=== PATIENT | male | born 1995 | race Caucasian/White ===

== ENCOUNTER 2017-03-26 20:53 | Emergency (ER) | payer OTHER ==
[~2017-03-26] VITALS: Ht 190.5 cm; Wt 100.0 kg
[2017-03-26 20:54] VITALS: BP 145/72; PULSE 93; RESP 16; TEMP 99.5; O2SAT 99
[2017-03-26 22:11] LABS: AUTOMATED NEUTROPHIL # 7.2 TH/MM3 (1.8-7.7); BASOPHIL % 0.3 % (0.0-2.0); EOSINOPHIL # 0.2 TH/MM3 (0-0.4); EOSINOPHIL % 1.6 % (0.0-4.0); HEMATOCRIT 41.6 % (39.0-51.0); HEMO FLAGS DIFF FINAL; LYMPH % 19.8 % (9.0-44.0); LYMPHOCYTE # 2.1 TH/MM3 (1.0-4.8); MEAN CELL VOLUME 85.9 FL (80.0-100.0); MONO % 10.7 % (0.0-8.0); NEUT % 67.6 % (16.0-70.0); PLATELET COUNT 175 TH/MM3 (150-450); RED BLOOD COUNT 4.85 MIL/MM3 (4.50-5.90); RED CELL DISTRIBUTION WIDTH 12.9 % (11.6-17.2); WHITE BLOOD COUNT 10.7 TH/MM3 (4.0-11.0)
[2017-03-26 22:15] LABS: BLOOD, URINE TRACE (NEG); COMMENT (UR) CULT NOT INDICATED; CULTURE IF INDICATED CULT NOT INDICATED; GLUCOSE,URINE NEG (NEG); KETONE, URINE NEG (NEG); MUCUS URINE FEW /lpf (OCC); NITRITE,URINE NEG (NEG); PH, URINE 6.5 (5.0-8.5); SQUAMOUS EPITHELIAL CELL URINE <1 /hpf (0-5); URINE COLOR YELLOW (YELLW/STRAW)
[2017-03-26] MEDS ORDERED: SODIUM CHLOR 0.9% 1000 ML INJ 1,000 ML IV ONE (22:15)
[2017-03-26] MEDS ORDERED: ONDANSETRON HCL 4 MG/2 ML VIAL IV PUSH ONE (22:15)
--- NOTE | 2017-03-26 22:17 | PD ---
HPI Chief Complaint: Abdominal Pain Time Seen by Provider: 22:14 Travel History International Travel<30 days: No Contact w/Intl Traveler<30days: No Traveled to known affect area: No History of Present Illness HPI 22-year-old male patient presents to the ER today with several days' history of nausea, abdominal pains, and diarrhea. He states that his pain was initially in the lower abdomen and today moved to the right lower quadrant. He states the pain is currently a 5 out of 10. He denies any fevers or vomiting. He does not know any sick contacts. Modifying Factors: None Associated Signs & Symptoms: Nausea, abdominal pain, diarrhea Risk Factors: None PFSH Past Medical History Medical History: Denies Significant Hx Diminished Hearing: No Immunizations Current: Yes Social History Alcohol Use: Yes (SOMETIMES ) Tobacco Use: No Substance Use: No Allergies-Medications (Allergen,Severity, Reaction): Coded Allergies: amoxicillin (Verified Allergy, Unknown, 03/26/17) Reported Meds & Prescriptions Reported Meds & Active Scripts Active No Active Prescriptions or Reported Medications Review of Systems Except as stated in HPI: all other systems reviewed are Neg Physical Exam Narrative GENERAL: Well-developed young male patient currently in mild distress. Awake and oriented 3. SKIN: Focused skin assessment warm/dry. HEAD: Atraumatic. Normocephalic. EYES: Pupils equal and round. No scleral icterus. No injection or drainage. ENT: No nasal bleeding or discharge. Mucous membranes pink and moist. NECK: Trachea midline. No JVD. CARDIOVASCULAR: Regular rate and rhythm. No murmur appreciated. RESPIRATORY: No accessory muscle use. Clear to auscultation. Breath sounds equal bilaterally. GASTROINTESTINAL: Abdomen soft, mild right lower quadrant tenderness without guarding or rebound, nondistended. Hepatic and splenic margins not palpable. MUSCULOSKELETAL: No obvious deformities. No clubbing. No cyanosis. No edema. NEUROLOGICAL: Awake and alert. No obvious cranial nerve deficits. Motor grossly within normal limits. Normal speech. PSYCHIATRIC: Appropriate mood and affect; insight and judgment normal. Data Data Last Documented VS Vital Signs Date Time Temp Pulse Resp B/P (MAP) Pulse Ox O2 Delivery O2 Flow Rate FiO2 03/26/17 21:03 18 03/26/17 20:54 99.5 93 145/72 (96) 99 Room Air Orders Orders Complete Blood Count With Diff (03/26/17 21:57) Comprehensive Metabolic Panel (03/26/17 21:57) Urinalysis - C+S If Indicated (03/26/17 21:57) Iv Access Insert/Monitor (03/26/17 21:57) Oxygen Administration (03/26/17 21:57) Oximetry (03/26/17 21:57) Lipase (03/26/17 21:57) Ct Abd/Pel W Iv Contrast(Rout) (03/26/17 22:11) Sodium Chlor 0.9% 1000 Ml Inj (Ns 1000 M (03/26/17 22:15) Ondansetron Inj (Zofran Inj) (03/26/17 22:15) Iohexol 350 Inj (Omnipaque 350 Inj) (03/26/17 22:59) Labs Laboratory Tests Test 03/26/17 21:55 White Blood Count 10.7 TH/MM3 Red Blood Count 4.85 MIL/MM3 Hemoglobin 14.6 GM/DL Hematocrit 41.6 % Mean Corpuscular Volume 85.9 FL Mean Corpuscular Hemoglobin 30.0 PG Mean Corpuscular Hemoglobin Concent 35.0 % Red Cell Distribution Width 12.9 % Platelet Count 175 TH/MM3 Mean Platelet Volume 9.0 FL Neutrophils (%) (Auto) 67.6 % Lymphocytes (%) (Auto) 19.8 % Monocytes (%) (Auto) 10.7 % Eosinophils (%) (Auto) 1.6 % Basophils (%) (Auto) 0.3 % Neutrophils # (Auto) 7.2 TH/MM3 Lymphocytes # (Auto) 2.1 TH/MM3 Monocytes # (Auto) 1.1 TH/MM3 Eosinophils # (Auto) 0.2 TH/MM3 Basophils # (Auto) 0.0 TH/MM3 CBC Comment DIFF FINAL Differential Comment Urine Color YELLOW Urine Turbidity CLEAR Urine pH 6.5 Urine Specific [place] 1.020 Urine Protein 30 mg/dL Urine Glucose (UA) NEG mg/dL Urine Ketones NEG mg/dL Urine Occult Blood TRACE Urine Nitrite NEG Urine Bilirubin NEG Urine Urobilinogen 8.0 MG/DL Urine Leukocyte Esterase NEG Urine RBC 4 /hpf Urine WBC 1 /hpf Urine Squamous Epithelial Cells <1 /hpf Urine Mucus FEW /lpf Microscopic Urinalysis Comment CULT NOT INDICATED Blood Urea Nitrogen 14 MG/DL Creatinine 1.11 MG/DL Random Glucose 97 MG/DL Total Protein 7.4 GM/DL Albumin 3.6 GM/DL Calcium Level 8.9 MG/DL Alkaline Phosphatase 50 U/L Aspartate Amino Transf (AST/SGOT) 12 U/L Alanine Aminotransferase (ALT/SGPT) 15 U/L Total Bilirubin 0.6 MG/DL Sodium Level 139 MEQ/L Potassium Level 4.0 MEQ/L Chloride Level 104 MEQ/L Carbon Dioxide Level 28.3 MEQ/L Anion Gap 7 MEQ/L Estimat Glomerular Filtration Rate 84 ML/MIN Lipase 115 U/L MDM Medical Decision Making Medical Screen Exam Complete: Yes Emergency Medical Condition: Yes Medical Record Reviewed: Yes Interpretation(s) Laboratory Tests Test 03/26/17 21:55 Monocytes (%) (Auto) 10.7 % (0.0-8.0) Monocytes # (Auto) 1.1 TH/MM3 (0-0.9) Urine Protein 30 mg/dL (NEG-TRACE) Urine Occult Blood TRACE (NEG) Urine Urobilinogen 8.0 MG/DL (LESS THAN Urine RBC 4 /hpf (0-3) Urine Mucus FEW /lpf (OCC) Aspartate Amino Transf (AST/SGOT) 12 U/L (15-37) Estimat Glomerular Filtration Rate 84 ML/MIN (>89) Last 24 hours Impressions Abdomen/Pelvis CT 03/26/171 Signed Impressions: Service Date/Time: Sunday, March 26, 2017 22:58 - CONCLUSION: 1. The above findings are diagnostic of a right-sided colitis. There may be also mild inflammation of the terminal ileum. Etiology is nonspecific. There is trace free fluid in the pelvis. 2. Mild splenomegaly. Frank German MD Differential Diagnosis Nausea, diarrhea, right lower quadrant abdominal pains: Gastroenteritis versus metabolic issues versus dehydration versus appendicitis versus diverticulitis Narrative Course CAT scan did not show signs of appendicitis but does show some right sided colitis. Along with symptoms, I suspect he has some underlying colitis causing symptoms and my plan would be to give him symptomatic relief for nausea, and diarrhea. My plan would be to release him with follow-up to primary care physician. Return for worsening in symptoms as necessary. The plan has been discussed with him and he states understanding. Diagnosis Primary Impression: Colitis Med/Other Pt SpecificInfo: Prescription(s) given Scripts Ondansetron Odt (Zofran Odt) 4 Mg Tab 4 MG SL Q6HR Y for Nausea/Vomiting, #7 TAB 0 Refills Prov: Tabby Modi MD 03/26/17 Loperamide (Imodium A-D) 2 Mg Capsule 2 MG PO DIRECTED Y for DIARRHEA, #20 CAP 0 Refills One capsule after each loose stool. Not to exceed 8 tablets per day. Prov: Tabby Modi MD 03/26/17 Disposition: 01 DISCHARGE HOME Condition: Stable Tabby Modi MD Mar 26, 2017 22:17
[2017-03-26 22:29] LABS: ANION GAP 7 MEQ/L (5-15); BICARBONATE 28.3 MEQ/L (21.0-32.0); BLOOD UREA NITROGEN 14 MG/DL (7-18); CHLORIDE 104 MEQ/L (98-107); GLOMERULAR FILTRATION RATE 84 ML/MIN (>89); SODIUM (NA) 139 MEQ/L (136-145)
[2017-03-26 22:30] LABS: AST (GOT) 12 U/L (15-37)
[2017-03-26 22:33] LABS: ALKALINE PHOSPHATASE 50 U/L (45-117); ALT (GPT) 15 U/L (12-78); TOTAL BILIRUBIN ADULT 0.6 MG/DL (0.2-1.0)
[2017-03-26] MEDS ORDERED: IOHEXOL 350 MG/ML 10 ML VIAL (for RAD DIAG) IVCONTRAST ONE (22:59)
--- NOTE | 2017-03-26 23:19 | RADRPT ---
EXAM DATE/TIME: 03/26/2017 22:58 [facility] COMPARISON: No previous studies available for comparison. INDICATIONS : Generalized abdominal pain, more so on right side with fever, nausea, diarrhea and vomiting. IV CONTRAST: 95 cc Omnipaque 350 (iohexol) IV ORAL CONTRAST: No oral contrast ingested. RADIATION DOSE: 12.92 CTDIvol (mGy) MEDICAL HISTORY : None SURGICAL HISTORY : None. ENCOUNTER: Initial ACUITY: 3 days PAIN SCALE: 8/10 LOCATION: Right abdomen TECHNIQUE: Volumetric scanning of the abdomen and pelvis was performed. Using automated exposure control and ad justment of the mA and/or kV according to patient size, radiation dose was kept as low as reasonably achievable to obtain optimal diagnostic quality images. DICOM format image data is available electro nically for review and comparison. FINDINGS: LOWER LUNGS: The visualized lower lungs are clear. LIVER: Homogeneous density without lesion. There is no dilation of the biliary tree. No calcified gallston es. SPLEEN: Spleen is enlarged measuring 16.6 cm. PANCREAS: Within normal limits. KIDNEYS: Normal in size and shape. There is no mass, stone or hydronephrosis. ADRENAL GLANDS: Within normal limits. VASCULAR: There is no aortic aneurysm. BOWEL/MESENTERY: The stomach and proximal small bowel are normal. There may be mild bowel wall thickening of the termi nal ileum. The entire cecum, ascending colon, and proximal transverse colon demonstrates circumferent ial wall thickening with pericolonic inflammation. There are enlarged ileocolic lymph nodes. The appe ndix is fluid-filled measuring up to 6 mm in diameter but no definite surrounding inflammation is pre sent to indicate acute diverticulitis. There is trace free fluid in the pelvis. No free air is presen t. ABDOMINAL WALL: Within normal limits. RETROPERITONEUM: There is no lymphadenopathy. BLADDER: No wall thickening or mass. REPRODUCTIVE: Within normal limits. INGUINAL: There is no lymphadenopathy or hernia. MUSCULOSKELETAL: No acute abnormality. CONCLUSION: 1. The above findings are diagnostic of a right-sided colitis. There may be also mild inflammation of the terminal ileum. Etiology is nonspecific. There is trace free fluid in the pelvis. 2. Mild splenomegaly. Frank German MD on March 26, 2017 at 23:13 Board Certified Radiologist. This report was verified electronically.
[2017-03-26] MEDS ORDERED: ZOFR4TAB3 SL (23:39)
[2017-03-26] MEDS ORDERED: LOPE-1 PO (23:39)
[2017-03-26 23:59] VITALS: BP 108/56
== END 2017-03-27 00:01 | disposition home or self-care (01) ==
LOC: NEPC 20:53
DX: K52.9 Noninfective gastroenteritis and colitis, unspecified (principal)
CPT/HCPCS: 74177; 80053; 81001; 83690; 85025; 96374; 99285; J2405; J7030; Q9967